=== PATIENT | male | born 1935 | race Caucasian/White ===

== ENCOUNTER → 2017-02-02 | Outpatient (CLI) | payer MEDICARE ==
[~2017-02-02] MED LIST: ABREVA10% TP; ADULT LOW DOSE81 MG PO; AMOX/CLAV POT 41 CTB PO; ARTHRITIS PAIN650 M1 PO; ARTIFICIAL TEAR15 ML OP; CENTRUM SILVER1 EAC3 PO; CENTRUM SILVER1 TA3 PO; CITRUCEL500 MG PO; CLINDAMYCIN TP; CLINORIL GENER150 MG PO; CLOBETASOL PROP 0.05% TP; COREG 6.25MG6.25 MG PO; FELODIPINE OR; FLOMAX0.4 MG PO; FLUOCINONIDE0.05% TP; HYDROCORTISONE25 M2 PR; HYZAAR 25 MG-101 TAB PO; LEVITRA10 MG PO; LOSARTAN POTASS1 TA1 PO; MIRALAX(PO17 GM/1 PA PO; NORVASC 5MG. TAB5 MG PO; PLAVIX 75MG TAB75 MG PO; PROTONIX40 MG PO; RESTASIS 0.4 M0.4 ML OP; TRIAMCINOL15 GM/TUBE TP; ZANTAC 7575 MG PO
--- NOTE | 2017-02-02 11:57 | RADIOLOGY REPORT PS360 ---
US [id number] HISTORY: ELEVATED KIDNEY FUNCTION ORDERING PHYSICIAN: Jakub Sal MD PATIENT AGE: 81 years COMPARISON: 12/23/2008 FINDINGS: RIGHT KIDNEY:The right kidney is 9 x 5 x 6 cm. There is mild cortical thinning. An exophytic 1.8 cm cyst projects off of the lower pole. A 1.5 cm parapelvic renal cyst is noted on the right. No hydronephrosis LEFT KIDNEY:8.4 x 5.3 x 6.5 cm. There is moderate left hydronephrosis. A 1.7 cm cyst is present along the lower pole on the left and a 1.5 cm cyst is present in the upper pole on the left OTHER FINDINGS: No other pertinent findings IMPRESSION: 1. Moderate left hydronephrosis. 2. Bilateral renal cysts
== END ==
LOC: RAD 09:28
DX: R94.4 Abnormal results of kidney function studies (principal)

== ENCOUNTER → 2017-02-08 | Outpatient (CLI) | payer MEDICARE ==
[2017-02-08 11:34] LABS: URINE COLLECTION TIME 24 HOURS
[2017-02-08 12:21] LABS: URINE TOTAL PROTEIN CONC 136 mg/24 HR (40-90)
== END ==
LOC: LAB 09:36
PROVIDERS: Internal Medicine
DX: R94.4 Abnormal results of kidney function studies (principal)

== ENCOUNTER → 2017-03-26 | Outpatient (CLI) | payer MEDICARE ==
[~2017-03-26] MED LIST changes: +AMLODIPINE10 MG PO; -NORVASC 5MG. TAB5 MG PO
--- NOTE | 2017-03-26 15:21 | RADIOLOGY REPORT PS360 ---
CT LUMBAR SPINE W/O CONTRAST CLINICAL INDICATION: LBP, RT SCIATICA, HX RENAL CA ORDERING PHYSICIAN: Jakub Sal MD PATIENT AGE: 81 years COMPARISON: Abdomen CT of 07/18/2016 TECHNIQUE:Axial, sagittal, and coronal images are generated and reviewed without contrast FINDINGS: There is normal alignment. No acute fracture or dislocation evident. No destructive process is apparent. There is a blastic lesion involving the left ilium at the region of the SI joint centrally measuring 2 cm. This did have a similar appearance on the previous exam and was also present on 06/24/2015 not significantly changed. T11-T12: Degenerative disc disease. T12-L1: Degenerative disc disease. L1-L2: Degenerative disc disease with Schmorl's nodes along the inferior endplate of L1 and superior endplate of L2. L2-L3: Mild degenerative disc disease. L3-L4: Moderate changes disc disease with bulging disc. L4-L5: Degenerative disc disease with bulging disc along with a Schmorl's node along the inferior endplate of L4. L5-S1: Severe degenerative disc disease with bulging disc along with facet arthritic/hypertrophic changes with bilateral lateral recess and foraminal narrowing. Endplate osteophytes also noted contributing to the foraminal narrowing and lateral recess narrowing. Small area of bony sclerosis involves the L5 vertebral body on the right unchanged from an older CT scan. A mixed density lesion involves the right ilium unchanged Incidental note made of a moderate sized hiatal hernia. There is bilateral hydronephrosis and hydroureter along with markedly distended urinary bladder with diverticula. IMPRESSION: 1. Lumbar spondylosis with degenerative disc disease, endplate spurring, Schmorl's nodes, and facet arthritic change as detailed above. Please see above for detailed description at each level. 2. Severe degenerative disc disease L5-S1 with facet sclerosis along with bilateral lateral recess and foraminal narrowing. 3. Scattered areas of bony sclerosis which are stable and may represent bone islands. Stable blastic metastasis is included in the differential diagnosis. 4. Bilateral hydronephrosis and hydroureter with distended urinary bladder with bladder diverticula
== END ==
LOC: RAD 13:57
DX: M54.5 Low back pain (principal); M54.31 Sciatica, right side; Z85.820 Personal history of malignant melanoma of skin; Z85.528 Personal history of other malignant neoplasm of kidney

== ENCOUNTER → 2017-08-20 | Outpatient (CLI) | payer MEDICARE ==
[~2017-08-20] MED LIST changes: +OMNICEF 300 MG300 MG PO; +TYLENOL WITH CO1 TA1 PO
--- NOTE | 2017-08-20 14:29 | RADIOLOGY REPORT PS360 ---
US [id number] HISTORY: HYDRONEPHROSIS ORDERING PHYSICIAN: Jose Martin Vargas MD PATIENT AGE: 82 years COMPARISON: 02/02/2017 FINDINGS: RIGHT KIDNEY:Right kidney measures 8 x 5 x 5 cm. There is mild cortical thinning. A 14 mm cyst is present along the lower pole. There is a 16 mm exophytic cyst along the superior aspect of the right kidney. No hydronephrosis LEFT KIDNEY:Left kidney measures 9 x 5 x 3.4 cm with mild cortical thinning. There is a 3 cm cyst along the upper pole the left kidney. A 9 mm cyst is present in the mid aspect of the left kidney. No hydronephrosis OTHER FINDINGS: No other pertinent findings IMPRESSION: 1. No hydronephrosis. 2. Mild bilateral renal cortical thinning with small bilateral renal cysts
== END ==
LOC: RAD 12:52
DX: N13.2 Hydronephrosis with renal and ureteral calculous obstruction (principal)

== ENCOUNTER 2017-08-28 11:59 | Day surgery (SDC) | payer MEDICARE ==
[2017-08-28 14:04] VITALS: BP 142/71
== END 2017-08-28 13:55 | disposition home or self-care (01) ==
LOC: SDC 11:59
PROVIDERS: Ophthalmology
PROC: 08RJ3JZ Replacement of Right Lens with Synthetic Substitute, Percutaneous Approach (ICD-10-PCS; principal; 2017-08-28 15:30)
DX: H53.8 Other visual disturbances (principal); H53.149 Visual discomfort, unspecified; H02.839 Dermatochalasis of unspecified eye, unspecified eyelid
CPT/HCPCS: V2632